=== PATIENT | female | born 2000 | race Caucasian/White ===

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

== ENCOUNTER → 2023-10-17 | Outpatient (REF) | payer OTHER ==
[~2023-10-17] MED LIST changes: +ONDA-282 PO; -ONDA4TAB6 PO
== END ==
LOC: M LAB REF 12:56
PROVIDERS: ATTEND Physician Assistant
DX: R30.0 Dysuria (principal)

== ENCOUNTER → 2025-01-30 | Outpatient (CLI) | payer OTHER ==
[2025-01-30 18:09] LABS: IRON (FE) 83.0 UG/DL (50-170)
[2025-01-30 18:10] LABS: PERCENT SATURATION 21.4 % (13.2-45.0)
== END ==
LOC: M WUC 14:25
PROVIDERS: ATTEND Physician Assistant Medical
DX: R53.83 Other fatigue (principal); M25.551 Pain in right hip